=== PATIENT | male | born 1965 | race Caucasian/White ===

== ENCOUNTER → 2017-08-08 | Outpatient (CLI) | payer BC | END | disposition home or self-care (01) | LOC: KCIC MRI 09:57 | DX: M48.061 Spinal stenosis, lumbar region without neurogenic claudication (principal); M51.36 Other intervertebral disc degeneration, lumbar region; M25.78 Osteophyte, vertebrae | CPT/HCPCS: 72148 ==

== ENCOUNTER 2018-02-02 12:50 | Emergency (ER) | payer BC ==
[~2018-02-02] VITALS: Ht 182.9 cm; Wt 118.0 kg
[~2018-02-02 12:50] MED LIST: AMOX1TAB61 PO; Hydrocodone Bit/Acetaminophen PO
[2018-02-02 13:30] VITALS: BP 146/72
[2018-02-02 13:49] LABS: CALCIUM 9.4 mg/dL (8.5-10.1); GFR 78.8
--- NOTE | 2018-02-02 14:01 | PHYS DOC ---
Past Medical History Past Medical History: Hypertension Past Surgical History: Appendectomy, Other Additional Past Surgical Histo: Right ankle Additional Information: CHEWS [place] Alcohol Use: Occasionally Drug Use: None Adult General Chief Complaint Chief Complaint: ABNORMAL LABS HPI HPI Patient is a 52 year old male since the ER for evaluation of possible abnormal labs. Patient has routine labs drawn a few days ago was called to come to the ER for possible elevated potassium. Patient with history of hypertension on lisinopril. Patient denies any chest pain, shortness of breath, lower extremity edema, myalgias. Review of Systems Review of Systems Constitutional: Denies fever or chills [] Eyes: Denies change in visual acuity, redness, or eye pain [] HENT: Denies nasal congestion or sore throat [] Respiratory: Denies cough or shortness of breath [] Cardiovascular: no chest pain, no orthopnea, no lower extremity edema GI: Denies abdominal pain, nausea, vomiting, bloody stools or diarrhea [] : Denies dysuria or hematuria [] Musculoskeletal: Denies back pain or joint pain [] Integument: Denies rash or skin lesions [] Neurologic: Denies headache, focal weakness or sensory changes [] Endocrine: Denies polyuria or polydipsia [] All other systems were reviewed and found to be within normal limits, except as documented in this note. Allergies Allergies Allergies Coded Allergies Type Severity Reaction Last Updated Verified No Known Drug Allergies 10/10/13 No Physical Exam Physical Exam Constitutional: Well developed, well nourished, HENT: Normocephalic, atraumatic, Eyes: PERRLA, EOMI, Neck: no stridor. [] Cardiovascular:Heart rate regular rhythm, no murmur [] Lungs & Thorax: Bilateral breath sounds clear to auscultation [] Skin: Warm, dry, no erythema, no rash. [] Back: No tenderness, no CVA tenderness. [] Extremities: No tenderness, no cyanosis, no clubbing, ROM intact, no edema. [] Neurologic: Alert and oriented X 3, no focal deficits noted. [] Psychologic: Affect normal, judgement normal, mood normal. [] Current Patient Data Vital Signs Vital Signs Date Time Temp Pulse Resp B/P (MAP) Pulse Ox O2 Delivery O2 Flow Rate FiO2 02/02/18 13:30 90 21 146/72 (96) 94 Room Air 02/02/18 12:53 98.2 96.0 98.2 Lab Values Laboratory Tests Test 02/02/18 13:31 Sodium Level 138 mmol/L (136-145) Potassium Level 4.0 mmol/L (3.5-5.1) Chloride Level 101 mmol/L (98-107) Carbon Dioxide Level 31 mmol/L (21-32) Anion Gap 6 (6-14) Blood Urea Nitrogen 13 mg/dL (8-26) Creatinine 1.0 mg/dL (0.7-1.3) Estimated GFR (Cockcroft-Gault) 78.8 Glucose Level 101 mg/dL (70-99) H Calcium Level 9.4 mg/dL (8.5-10.1) Laboratory Tests 02/02/18 13:31 EKG EKG 1306: Normal sinus rhythm, heart rate 92, no significant ST segment changes.[] Radiology/Procedures Radiology/Procedures [] Course & Med Decision Making Course & Med Decision Making Pertinent Labs and Imaging studies reviewed. (See chart for details) []Reassuring labs. Patient advised follow-up with PCP. Dragon Disclaimer Dragon Disclaimer This electronic medical record was generated, in whole or in part, using a voice recognition dictation system. Departure Departure Impression: Primary Impression: Feared condition not demonstrated Disposition: 01 HOME, SELF-CARE Condition: STABLE Referrals: GENE VEGA DO (PCP) Additional Instructions: Repeat labs were normal. Please follow-up with your primary care physician. GUICHO ORNELAS DO Feb 02, 2018 14:01
--- NOTE | 2018-02-02 14:21 | EKG ---
[facility] [address] [place] [address] Test Date: 2018-02-02 Test Time: 13:02:29 Pat Name: JANE DEXTER Department: Room: Gender: M Web Marketing Coordinator: : 1965 Requested By: GUICHO ORNELAS Order Number: [id number] Reading MD: Sánchez Gutierrez MD Measurements Intervals [place] Rate: 92 P: 28 [place]: 154 QRS: 45 QRSD: 78 T: 25 QT: 336 QTc: 420 Interpretive Statements SINUS RHYTHM Electronically Signed On 02-04-2018 9:04:23 CDT by Sánchez Gutierrez MD
== END 2018-02-02 14:07 | disposition home or self-care (01) ==
LOC: ER 12:50
DX: Z71.1 Person with feared health complaint in whom no diagnosis is made (principal); I10 Essential (primary) hypertension; Z90.89 Acquired absence of other organs; Z72.0 Tobacco use
CPT/HCPCS: 36415; 80048; 93005; 99285-25

== ENCOUNTER 2018-07-07 21:44 | Emergency (ER) | payer BC ==
[~2018-07-07] VITALS: Ht 182.9 cm; Wt 113.4 kg
[2018-07-07 22:59] LABS: BASO % 0 % (0-3); EOS # 0.3 x10^3/uL (0.0-0.7); EOS % 4 % (0-3); HEMATOCRIT 39.1 % (39.0-53.0); HEMOGLOBIN 13.2 g/dL (13.0-17.5); LYMPH # 2.3 x10^3/uL (1.0-4.8); LYMPH % 32 % (24-48); MEAN CORPUSCULAR HEMOGLOBIN 33 pg (25-35); MEAN CORPUSCULAR HGB CONC 34 g/dL (31-37); MEAN CORPUSCULAR VOLUME 98 fL (79-100); MONO # 0.8 x10^3/uL (0.0-1.1); MONO % 11 % (0-9); NEUT # 3.8 x10^3uL (1.8-7.7); NEUT % 53 % (31-73); PLATELET COUNT 208 x10^3/uL (140-400); RED CELL DISTRIBUTION WIDTH 12.8 % (11.5-14.5); WHITE BLOOD COUNT 7.3 x10^3/uL (4.0-11.0)
[2018-07-07] MEDS ORDERED: IV NORMAL SALINE 1000ML BAG 1,000 ML IV SCH (23:00)
[2018-07-07] MEDS ORDERED: ASPIRIN CHEWABLE 81 MG TABLET. PO ONE (23:00)
[2018-07-07 23:11] LABS: CALCIUM 9.1 mg/dL (8.5-10.1); CREATININE 0.8 mg/dL (0.7-1.3); GFR 101.5; POTASSIUM 3.6 mmol/L (3.5-5.1)
[2018-07-07 23:16] LABS: ALBUMIN 3.5 g/dL (3.4-5.0); ALBUMIN/GLOBULIN RATIO 0.9 (1.0-1.7); MAGNESIUM 2.3 mg/dL (1.8-2.4); TOTAL BILIRUBIN 0.1 mg/dL (0.2-1.0); TOTAL PROTEIN 7.2 g/dL (6.4-8.2)
[2018-07-08 00:13] VITALS: BP 131/68
--- NOTE | 2018-07-08 00:15 | PHYS DOC ---
Past Medical History Past Medical History: Hypertension Past Surgical History: Appendectomy, Other Additional Past Surgical Histo: Right ankle Alcohol Use: Occasionally Drug Use: None Adult General Chief Complaint Chief Complaint: Palpitations HPI HPI Patient is a 53-year-old male who presents with complaint of palpitations that started approximately 45 minutes prior to his arrival. Patient states that heart feels like it's beating very fast and feels like he can feel his pulse in his head, his ears in his fingertips. He denies any actual chest pain. He states that the palpitations were worsened with exertion. He does admit to caffeine use and had also drank 4 beers earlier today. He denies any nausea, vomiting or diaphoresis. He states that he has had similar episodes in the past but did not last as long. Review of Systems Review of Systems Constitutional: Denies fever or chills [] Respiratory: Denies cough or shortness of breath [] Cardiovascular: No additional information not addressed in HPI [] GI: Denies abdominal pain, nausea, vomiting or diarrhea [] Neurologic: Denies headache, focal weakness or sensory changes [] All other systems were reviewed and found to be within normal limits, except as documented in this note. Current Medications Current Medications Current Medications Medications (Trade) Dose Ordered Sig/Eddie Start Time Stop Time Status Last Admin Dose Admin Aspirin (Children'S Aspirin) 324 mg 1X ONCE 07/07/18 23:00 07/07/18 23:01 DC 07/07/18 23:34 324 MG Sodium Chloride 1,000 ml @ 1,000 mls/hr Q1H 07/07/18 23:00 07/07/18 23:59 DC 07/07/18 23:34 1,000 MLS/HR Allergies Allergies Allergies Coded Allergies Type Severity Reaction Last Updated Verified No Known Drug Allergies 10/10/13 No Physical Exam Physical Exam Constitutional: Well developed, well nourished, no acute distress, non-toxic appearance. [] HENT: Normocephalic, atraumatic, bilateral external ears normal, oropharynx moist, no oral exudates, nose normal. [] Eyes: PERRLA, EOMI, conjunctiva normal, no discharge. [] Neck: Normal range of motion, no tenderness, supple, no stridor. [] Cardiovascular:Heart rate regular rhythm, no murmur [] Lungs & Thorax: Bilateral breath sounds clear to auscultation [] Abdomen: Bowel sounds normal, soft, no tenderness, no masses, no pulsatile masses. [] Skin: Warm, dry, no erythema, no rash. [] Extremities: No tenderness, no cyanosis, no clubbing, ROM intact, no edema. [] Neurologic: Alert and oriented X 3, no focal deficits noted. [] Current Patient Data Vital Signs Vital Signs Date Time Temp Pulse Resp B/P (MAP) Pulse Ox O2 Delivery O2 Flow Rate FiO2 07/07/18 21:45 97.6 105 16 146/85 (105) 94 Room Air 97.6 Lab Values Laboratory Tests Test 07/07/18 22:25 White Blood Count 7.3 x10^3/uL (4.0-11.0) Red Blood Count 4.00 x10^6/uL (4.30-5.70) L Hemoglobin 13.2 g/dL (13.0-17.5) Hematocrit 39.1 % (39.0-53.0) Mean Corpuscular Volume 98 fL (79-100) Mean Corpuscular Hemoglobin 33 pg (25-35) Mean Corpuscular Hemoglobin Concent 34 g/dL (31-37) Red Cell Distribution Width 12.8 % (11.5-14.5) Platelet Count 208 x10^3/uL (140-400) Neutrophils (%) (Auto) 53 % (31-73) Lymphocytes (%) (Auto) 32 % (24-48) Monocytes (%) (Auto) 11 % (0-9) H Eosinophils (%) (Auto) 4 % (0-3) H Basophils (%) (Auto) 0 % (0-3) Neutrophils # (Auto) 3.8 x10^3uL (1.8-7.7) Lymphocytes # (Auto) 2.3 x10^3/uL (1.0-4.8) Monocytes # (Auto) 0.8 x10^3/uL (0.0-1.1) Eosinophils # (Auto) 0.3 x10^3/uL (0.0-0.7) Basophils # (Auto) 0.0 x10^3/uL (0.0-0.2) Sodium Level 142 mmol/L (136-145) Potassium Level 3.6 mmol/L (3.5-5.1) Chloride Level 102 mmol/L (98-107) Carbon Dioxide Level 30 mmol/L (21-32) Anion Gap 10 (6-14) Blood Urea Nitrogen 18 mg/dL (8-26) Creatinine 0.8 mg/dL (0.7-1.3) Estimated GFR (Cockcroft-Gault) 101.5 BUN/Creatinine Ratio 23 (6-20) H Glucose Level 144 mg/dL (70-99) H Calcium Level 9.1 mg/dL (8.5-10.1) Magnesium Level 2.3 mg/dL (1.8-2.4) Total Bilirubin 0.1 mg/dL (0.2-1.0) L Aspartate Amino Transferase (AST) 20 U/L (15-37) Alanine Aminotransferase (ALT) 32 U/L (16-63) Alkaline Phosphatase 106 U/L (46-116) Troponin I Quantitative < 0.017 ng/mL (0.000-0.055) Total Protein 7.2 g/dL (6.4-8.2) Albumin 3.5 g/dL (3.4-5.0) Albumin/Globulin Ratio 0.9 (1.0-1.7) L Lipase 215 U/L (73-393) Thyroid Stimulating Hormone (TSH) 3.615 uIU/mL (0.358-3.74) Laboratory Tests 07/07/18 22:25 Laboratory Tests 07/07/18 22:25 EKG EKG [] Interpretation Time: EKG demonstrates normal sinus rhythm with rate of 94. Radiology/Procedures Radiology/Procedures [] Impressions: Chest x-ray demonstrates no acute process. Course & Med Decision Making Course & Med Decision Making Pertinent Labs and Imaging studies reviewed. (See chart for details) [] Dragon Disclaimer Dragon Disclaimer This electronic medical record was generated, in whole or in part, using a voice recognition dictation system. Departure Departure Impression: Primary Impression: Palpitations Disposition: 01 HOME, SELF-CARE Condition: STABLE Referrals: GENE VEGA DO (PCP) Patient Instructions: Palpitations, Supraventricular Tachycardia CATHERINE DAVENPORT Jr., DO Jul 08, 2018 00:15
--- NOTE | 2018-07-08 06:53 | EKG ---
[facility] [address] [place] [address] Test Date: 2018-07-07 Test Time: 22:10:45 Pat Name: JANE DEXTER Department: Room: Gender: M Storage And Backup Administrator: : 1965 Requested By: CATHERINE DAVENPORT Order Number: [id number] Reading MD: Sánchez Gutierrez MD Measurements Intervals [place] Rate: 94 P: 31 [place]: 152 QRS: 67 QRSD: 86 T: 43 QT: 332 QTc: 415 Interpretive Statements SINUS RHYTHM NON-SPECIFIC ST/T CHANGES Electronically Signed On 07-11-2018 16:08:29 CDT by Sánchez Gutierrez MD
--- NOTE | 2018-07-08 08:24 | RAD ---
PROCEDURE: PORTABLE CHEST 1V CLINICAL INDICATION: palpitations COMPARISON: None FINDINGS: No pneumothorax identified. Cardiac and mediastinal contours unremarkable. No pulmonary consolidation or acute airspace disease. No acute osseous abnormalities identified. IMPRESSION: No pulmonary consolidation or acute airspace disease. Electronically signed by: Bridger Fonseca DO (07/08/2018 8:21 AM) [facility]
== END 2018-07-08 00:26 | disposition home or self-care (01) ==
LOC: ER 21:44
DX: R00.2 Palpitations (principal); I10 Essential (primary) hypertension; Z90.89 Acquired absence of other organs
CPT/HCPCS: 36415; 71045; 80053; 83690; 83735; 84443; 84484; 85025; 93005; 99284; J7030